=== PATIENT | female | born 1995 | race African-American/Black ===

== ENCOUNTER 2023-11-27 14:07 | Emergency (ER) | payer OTHER ==
[~2023-11-27] VITALS: Ht 162.6 cm; Wt 93.0 kg
[2023-11-27] MEDS ORDERED: CEFTRIAXONE SODIUM 1,000 MG VIAL ONE (16:54)
[2023-11-27] MEDS ORDERED: CEFTRIAXONE SODIUM 1,000 MG VIAL IM ONE (17:00)
[2023-11-27 17:38] LABS: URINE APPEARANCE Clear; URINE BILIRRUBIN Negative (NEGATIVE); URINE BLOOD Large; URINE COLOR Yellow; URINE GLUCOSE Negative (NEGATIVE); URINE KETONE Negative (NEGATIVE); URINE LEUKOCYTE Trace; URINE NITRATE Negative; URINE PROTEIN Negative (NEGATIVE); URINE UROBILINOGEN 0.2 E.U./dl
[2023-11-27 17:42] LABS: URINE BACTERIA 990.2 uL (0.0-1933); URINE EPITHELIAL CELLS 25.8 uL (0.0-38.8); URINE RBC 362.4 uL (0.0-20.8)
[2023-11-27 17:54] LABS: URINE CAST 0.15 uL (0.0-1.40)
== END 2023-11-27 18:20 | disposition home or self-care (01) ==
LOC: ER 14:08
PROVIDERS: General Practice
DX: N39.0 Urinary tract infection, site not specified (principal)
CPT/HCPCS: 36415; 96372; 99282; J0696